=== PATIENT | male | born 1970 | race African-American/Black ===

== ENCOUNTER 2018-10-18 11:20 | Inpatient (IN) | payer OTHER ==
[~2018-10-18] VITALS: Ht 182.9 cm; Wt 90.7 kg
[~2018-10-18 11:20] MED LIST: ATORVASTATIN CA10 MG PO; JANUMET 50-5001 EACH PO; OMEPRAZOLE20 MG PO
[2018-10-20] MEDS ORDERED: GABAPENTIN800 MG PO (07:59)
[2018-10-20] MEDS ORDERED: DOCUSATE SODIU100 MG PO (07:59)
[2018-10-20] MEDS ORDERED: CLONAZEPAM0.5 MG PO (08:01)
[2018-10-20] MEDS ORDERED: AMOX-CLAV 875-1 EACH PO (08:01)
[2018-10-20] MEDS ORDERED: PERCOCET 5-3251 EACH PO (08:01)
== END 2018-10-20 17:29 | disposition home or self-care (01) | DRG 455 ==
LOC: O/R 10-19 06:28 → SURH 10-19 06:28
PROVIDERS: ADMIT Orthopaedic Surgery Orthopaedic Surgery of the Spine
PROC: 0SG1071 Fusion of 2 or more Lumbar Vertebral Joints with Autologous Tissue Substitute, Posterior Approach, Posterior Column, Open Approach (ICD-10-PCS; 2018-10-19)
PROC: 0SG10AJ Fusion of 2 or more Lumbar Vertebral Joints with Interbody Fusion Device, Posterior Approach, Anterior Column, Open Approach (ICD-10-PCS; 2018-10-19)
PROC: 0ST20ZZ Resection of Lumbar Vertebral Disc, Open Approach (ICD-10-PCS; 2018-10-19)
PROC: 07DS3ZZ Extraction of Vertebral Bone Marrow, Percutaneous Approach (ICD-10-PCS; 2018-10-19)
PROC: 0SG10A0 Fusion of 2 or more Lumbar Vertebral Joints with Interbody Fusion Device, Anterior Approach, Anterior Column, Open Approach (ICD-10-PCS; principal; 2018-10-19 13:30)
DX: M47.26 Other spondylosis with radiculopathy, lumbar region (principal); M48.062 Spinal stenosis, lumbar region with neurogenic claudication; M51.16 Intervertebral disc disorders with radiculopathy, lumbar region; E11.9 Type 2 diabetes mellitus without complications